=== PATIENT | female | born 1985 | race Caucasian/White ===

== ENCOUNTER 2017-02-16 07:03 | Emergency (ER) ==
[2017-02-16 07:11] VITALS: BP 147/87
[2017-02-16] MEDS ORDERED: ASPIRIN PO STA (07:29)
[2017-02-16] MEDS ORDERED: G.I. COCKTAIL ONE (07:31)
[2017-02-16 07:44] LABS: MANUAL DIFF NEEDED? NO
--- NOTE | 2017-02-16 07:51 | PROVIDER DOCUMENTATION ---
HPI-Abdominal Pain/GI Problem - General Chief Complaint: Epigastric Pain Stated Complaint: CHEST PAIN Time Seen by Provider: 02/16/17 07:18 Source: patient Allergies/Adverse Reactions: Patient Allergies Allergy/AdvReac Type Severity Reaction Status Date / Time Penicillins Allergy HIVES Verified 02/16/17 07:11 Home Medications: Home Medication List Medication Instructions Recorded Confirmed Last Taken Type Lisinopril 25 mg PO DAILY 02/16/17 02/16/17 Unknown History Tramadol [Ultram] 50 mg PO Q8HR PRN #10 tablet 02/16/17 Unknown Rx - History of Present Illness-ABD Nature of Presenting Problems: Reports L under breast pain and RUQ pain with radiating to her R shoulder blade. The L under breast pain started last night. Denies cardiac history, no h/ o DVT/PE. Reports her RUQ pain has been going on since one year ago when she was diagnosed gallstone. Has been working with [facility] to arrange her surgery due to no insurance. Pt looks comfortable when seen at ER. Abdominal Pain Onset Location: reports: RUQ, other (L CP) Pain Radiation: reports: shoulder (R) Quality of Pain: reports: aching Severity in ED: reports: moderate Onset/Duration: reports: 24 hours ago Timing: reports: still present Activities at Onset: reports: none Modifying Factors: improves with: rest, vomiting. worse with: movement Associated Symptoms: reports: vomiting, weakness. denies: diarrhea, EENT symptoms, rash, shortness of breath Last BM: unsure Dark Stools Present?: reports: none noticed Rectal Pain: reports: none # of Vomiting Episodes: 1 Emesis Description: reports: clear Bruising or Bleeding Gums?: No Similar Symptoms Previously?: Yes Recently seen or treated by another doctor?: Yes Review of Systems - Adult - REVIEW OF SYSTEMS - ADULT Constitutional: reports: see HPI. denies: fever, fatique Eyes: reports: no symptoms reported Ears, Nose, Mouth & Throat: reports: no symptoms reported Cardiovascular: reports: no symptoms reported Respiratory: reports: no symptoms reported Gastrointestinal: reports: see HPI, abdominal pain, frequent heartburn, nausea, vomiting. denies: difficulty swallowing, poor appetite Genitourinary: reports: no symptoms reported Musculoskeletal: reports: no symptoms reported Integumentary: reports: no symptoms reported Neurological: reports: no symptoms reported Endocrine: reports: no symptoms reported Hematologic/Lymphatic: reports: no symptoms reported All Other Systems: Reviewed and Negative Past History - Adult - PAST MEDICAL HISTORY-ADULT Review of Records: reports: Old Records Reviewed, Nursing Assessment Review, Medications Reviewed, Social history reviewed & non-contributory. Major Childhood Illnesses: reports: denies history Cardiovascular: reports: denies history Respiratory: reports: denies history Gastrointestinal: reports: denies history Obstetrical/Gynecological: reports: denies history Genitourinary: reports: denies history Musculoskeletal: reports: denies history Neurological: reports: denies history Endocrine/Immune: reports: denies history Other Conditions: reports: denies history - PRIOR SURGERIES/PROCEDURES Surgical/Procedure History: reports: - IMMUNIZATION STATUS Childhood Immunizations: See Nurse Assessment Flu Vaccine: See Nurse Assessment - FAMILY HISTORY Family History: reviewed, not pertinent Physical Exam-General - PHYSICAL EXAM-ADULT Initial Vital Signs Reviewed: Yes - CONSTITUTIONAL General Appearance: appears well, alert, no apparent distress - EYES Eyes: PERRL/EOMI, pink conjunctivae - HEAD, EARS, NOSE, MOUTH & THROAT HENMT: normocephalic/atraumatic, moist mucous membranes, normal ENT inspection - NECK Neck: non-tender, full range of motion, supple - RESPIRATORY Respiratory: chest non-tender, lungs clear, normal breath sounds, no pleuratic chest pain, no respiratory distress, no accessory muscle use - CARDIOVASCULAR Cardiovascular: normal peripheral pulses, regular rate, rhythm, no edema - GASTROINTESTINAL (ABDOMEN) Abdominal Exam: normal bowel sounds, soft, no organomegaly, no pulsatile mass, tenderness (Mild RUQ tenderness, no guarding and no rebound.). negative: distended, guarding, rigid, rebound - MUSCULOSKELETAL Back Exam: normal inspection, no CVA tenderness Extremity: normal range of motion, non-tender, normal gait, normal inspection - SKIN Integumentary: normal color, normal turgor, warm/dry - PSYCHIATRIC Psych/Mental Status: normal mood/affect, normal thought content, normal thought process, oriented x 3 Progress - PLAN OF CARE/RESULTS Progress/Plan/Lab Results: Laboratory Results - last 24 hr 02/16/17 02/16/17 02/16/17 07:39 07:39 07:39 WBC RBC Hgb Hct MCV MCH MCHC RDW Std Deviation Plt Count MPV Immature Gran % (Auto) Neut % (Auto) Lymph % (Auto) Giles % (Auto) Eos % (Auto) Baso % (Auto) Immature Gran # (Auto) Neut # (Auto) Lymph # (Auto) Giles # (Auto) Eos # (Auto) Baso # (Auto) PT INR APTT (Factor Assay) D-Dimer Sodium 135 L Potassium 4.2 Chloride 103 Carbon Dioxide 23 L Anion Gap 9 BUN 10 Creatinine 0.5 Estimated GFR/1.73 m2 > 60 BUN/Creatinine Ratio 20 Glucose 112 H Calculated Osmolality 270 Calcium 9.0 Magnesium 2.0 Total Bilirubin 0.30 AST 26 ALT 24 Alkaline Phosphatase 52 Creatine Kinase 309 H Creatine Kinase Index 1.7 CK-MB (CK-2) 5.33 H Troponin T < 0.010 [id number]-[id number] Pept 23 Total Protein 7.2 Albumin 4.1 Globulin 3.0 Albumin/Globulin Ratio 1.0 Urine Source Urine Color Urine Clarity Urine pH Ur Specific [place] Urine Protein Urine Ketones Urine Blood Urine Nitrite Urine Bilirubin Urine Urobilinogen Urine Microscopic RBC Urine WBC Urine Microscopic WBC Ur Epithelial Cells Urine Bacteria Urine Glucose Urine Test 02/16/17 02/16/17 02/16/17 07:39 07:39 08:50 WBC 7.13 RBC 4.26 Hgb 13.3 Hct 39.2 MCV 92.0 MCH 31.2 H MCHC 33.9 RDW Std Deviation 12.6 Plt Count 306 MPV 9.5 Immature Gran % (Auto) 0.3 Neut % (Auto) 54.1 Lymph % (Auto) 33.2 Giles % (Auto) 8.0 Eos % (Auto) 3.8 Baso % (Auto) 0.6 Immature Gran # (Auto) 0.02 Neut # (Auto) 3.86 Lymph # (Auto) 2.37 Giles # (Auto) 0.57 Eos # (Auto) 0.27 Baso # (Auto) 0.04 PT 13.0 INR 0.95 APTT (Factor Assay) 30.2 D-Dimer 0.32 Sodium Potassium Chloride Carbon Dioxide Anion Gap BUN Creatinine Estimated GFR/1.73 m2 BUN/Creatinine Ratio Glucose Calculated Osmolality Calcium Magnesium Total Bilirubin AST ALT Alkaline Phosphatase Creatine Kinase Creatine Kinase Index CK-MB (CK-2) Troponin T Kwl-A-Dmujhoggvht Pept Total Protein Albumin Globulin Albumin/Globulin Ratio Urine Source Urine Color Urine Clarity Urine pH Ur Specific [place] Urine Protein Urine Ketones Urine Blood Urine Nitrite Urine Bilirubin Urine Urobilinogen Urine Microscopic RBC Urine WBC Urine Microscopic WBC Ur Epithelial Cells Urine Bacteria Urine Glucose Urine Test NEGATIVE 02/16/17 08:50 WBC RBC Hgb Hct MCV MCH MCHC RDW Std Deviation Plt Count MPV Immature Gran % (Auto) Neut % (Auto) Lymph % (Auto) Giles % (Auto) Eos % (Auto) Baso % (Auto) Immature Gran # (Auto) Neut # (Auto) Lymph # (Auto) Giles # (Auto) Eos # (Auto) Baso # (Auto) PT INR APTT (Factor Assay) D-Dimer Sodium Potassium Chloride Carbon Dioxide Anion Gap BUN Creatinine Estimated GFR/1.73 m2 BUN/Creatinine Ratio Glucose Calculated Osmolality Calcium Magnesium Total Bilirubin AST ALT Alkaline Phosphatase Creatine Kinase Creatine Kinase Index CK-MB (CK-2) Troponin T Cmw-K-Iguzxresybm Pept Total Protein Albumin Globulin Albumin/Globulin Ratio Urine Source CLEAN CATCH Urine Color YELLOW Urine Clarity CLEAR Urine pH 7.0 Ur Specific [place] 1.010 Urine Protein NEGATIVE Urine Ketones NEGATIVE Urine Blood NEGATIVE Urine Nitrite NEGATIVE Urine Bilirubin NEGATIVE Urine Urobilinogen NORMAL Urine Microscopic RBC Not Reportable Urine WBC NEGATIVE Urine Microscopic WBC <10 Ur Epithelial Cells >10 A Urine Bacteria 1+ Urine Glucose NEGATIVE Urine Test Vital Signs Temp Pulse Resp BP Pulse Ox 02/16/17 07:11 98 F 87 18 147/87 98 Penicillins Allergy (Verified 02/16/17 07:11) HIVES Lisinopril 25 mg PO DAILY 02/16/17 Laboratory 02/16/17 02/16/17 02/16/17 08:50 08:50 07:39 WBC RBC Hgb Hct MCV MCH MCHC RDW Std Deviation Plt Count MPV Immature Gran % (Auto) Neut % (Auto) Lymph % (Auto) Giles % (Auto) Eos % (Auto) Baso % (Auto) Immature Gran # (Auto) Neut # (Auto) Lymph # (Auto) Giles # (Auto) Eos # (Auto) Baso # (Auto) PT 13.0 INR 0.95 APTT (Factor Assay) 30.2 D-Dimer 0.32 Sodium Potassium Chloride Carbon Dioxide Anion Gap BUN Creatinine Estimated GFR/1.73 m2 BUN/Creatinine Ratio Glucose Calculated Osmolality Calcium Magnesium Total Bilirubin AST ALT Alkaline Phosphatase Creatine Kinase Creatine Kinase Index CK-MB (CK-2) Troponin T Lru-R-Peqxrckeimt Pept Total Protein Albumin Globulin Albumin/Globulin Ratio Urine Source CLEAN CATCH Urine Color YELLOW Urine Clarity CLEAR Urine pH 7.0 Ur Specific [place] 1.010 Urine Protein NEGATIVE Urine Ketones NEGATIVE Urine Blood NEGATIVE Urine Nitrite NEGATIVE Urine Bilirubin NEGATIVE Urine Urobilinogen NORMAL Urine Microscopic RBC Not Reportable Urine WBC NEGATIVE Urine Microscopic WBC <10 Ur Epithelial Cells >10 A Urine Bacteria 1+ Urine Glucose NEGATIVE Urine Test NEGATIVE 02/16/17 02/16/17 02/16/17 07:39 07:39 07:39 WBC 7.13 RBC 4.26 Hgb 13.3 Hct 39.2 MCV 92.0 MCH 31.2 H MCHC 33.9 RDW Std Deviation 12.6 Plt Count 306 MPV 9.5 Immature Gran % (Auto) 0.3 Neut % (Auto) 54.1 Lymph % (Auto) 33.2 Giles % (Auto) 8.0 Eos % (Auto) 3.8 Baso % (Auto) 0.6 Immature Gran # (Auto) 0.02 Neut # (Auto) 3.86 Lymph # (Auto) 2.37 Giles # (Auto) 0.57 Eos # (Auto) 0.27 Baso # (Auto) 0.04 PT INR APTT (Factor Assay) D-Dimer Sodium Potassium Chloride Carbon Dioxide Anion Gap BUN Creatinine Estimated GFR/1.73 m2 BUN/Creatinine Ratio Glucose Calculated Osmolality Calcium Magnesium Total Bilirubin AST ALT Alkaline Phosphatase Creatine Kinase Creatine Kinase Index CK-MB (CK-2) Troponin T < 0.010 Pmi-I-Hjlplpotkup Pept 23 Total Protein Albumin Globulin Albumin/Globulin Ratio Urine Source Urine Color Urine Clarity Urine pH Ur Specific [place] Urine Protein Urine Ketones Urine Blood Urine Nitrite Urine Bilirubin Urine Urobilinogen Urine Microscopic RBC Urine WBC Urine Microscopic WBC Ur Epithelial Cells Urine Bacteria Urine Glucose Urine Test 02/16/17 07:39 WBC RBC Hgb Hct MCV MCH MCHC RDW Std Deviation Plt Count MPV Immature Gran % (Auto) Neut % (Auto) Lymph % (Auto) Giles % (Auto) Eos % (Auto) Baso % (Auto) Immature Gran # (Auto) Neut # (Auto) Lymph # (Auto) Giles # (Auto) Eos # (Auto) Baso # (Auto) PT INR APTT (Factor Assay) D-Dimer Sodium 135 L Potassium 4.2 Chloride 103 Carbon Dioxide 23 L Anion Gap 9 BUN 10 Creatinine 0.5 Estimated GFR/1.73 m2 > 60 BUN/Creatinine Ratio 20 Glucose 112 H Calculated Osmolality 270 Calcium 9.0 Magnesium 2.0 Total Bilirubin 0.30 AST 26 ALT 24 Alkaline Phosphatase 52 Creatine Kinase 309 H Creatine Kinase Index 1.7 CK-MB (CK-2) 5.33 H Troponin T Rsa-G-Datcfafucjn Pept Total Protein 7.2 Albumin 4.1 Globulin 3.0 Albumin/Globulin Ratio 1.0 Urine Source Urine Color Urine Clarity Urine pH Ur Specific [place] Urine Protein Urine Ketones Urine Blood Urine Nitrite Urine Bilirubin Urine Urobilinogen Urine Microscopic RBC Urine WBC Urine Microscopic WBC Ur Epithelial Cells Urine Bacteria Urine Glucose Urine Test Orders Category Date Time Status Cardiac Monitoring DIRECTED Care 02/16/17 07:29 Active CHEST-2 VIEWS [RAD] Stat Exams 02/16/17 07:29 Completed US GB < RUQ (LIMITED) [US] Stat Exams 02/16/17 07:29 Draft CBC WITH ELECTRONIC DIFF [HEME] Stat Lab 02/16/17 07:39 Completed CK PROFILE [SP CHEM] Stat Lab 02/16/17 07:39 Completed COMPREHENSIVE METABOLIC PANEL [CHEM] Stat Lab 02/16/17 07:39 Completed D-DIMER PL [COAG] Stat Lab 02/16/17 07:39 Completed MAGNESIUM [CHEM] Stat Lab 02/16/17 07:39 Completed TEST-URINE [PREG] Stat Lab 02/16/17 08:50 Completed PRO B-NATRIURETIC PEPTIDE Stat Lab 02/16/17 07:39 Completed PROTIME WITH INR PL [COAG] Stat Lab 02/16/17 07:[address] [COAG] Stat Lab 02/16/17 07:39 Completed TROPONIN T Stat Lab 02/16/17 07:[address] W/POSS RFLX CULT [URINALYSIS] Stat Lab 02/16/17 08:50 Completed Aspirin Med 02/16/17 07:29 Discontinued 325 mg PO STAT STA L[place] Alk/Al&mg Hydrox [G.i. Cocktail] Med 02/16/17 07:31 Discontinued 30 ml .ROUTE .STK-MED ONE Lido/Padilla Alk/Al&mg Hydrox [G.i. Cocktail] Med 02/16/17 08:46 Discontinued 30 ml PO NOW ONE EKG [EKG] Stat Ther 02/16/17 07:29 Draft - ULTRASOUND (By Radiology) 1 US Study: Gallbladder Impression: Abnormal (Fatty liver and gall stones. No gallbladder wall thickening.) Departure - Departure Time of Disposition Order: 09:38 DIAGNOSIS: Atypical chest pain Cholelithiases Qualifiers: Cholelithiasis location: gallbladder Cholecystitis presence: without cholecystitis Biliary obstruction: without biliary obstruction Qualified Code(s) : K80.20 - Calculus of gallbladder without cholecystitis without obstruction Disposition: HOME 01 Certified Medical Emergency: Emergent Condition: Stable Additional Instructions: Follow up with regular MD in 2-3 days. Return to ER as needed. Prescriptions: Tramadol [Ultram] 50 mg PO Q8HR PRN #10 tablet PRN Reason: Pain
[2017-02-16 07:54] LABS: BASO% 0.6 % (0.0-0.8); EOS# 0.27 X1000 (0.0-0.7); EOS% 3.8 % (0.0-10.0); HEMATOCRIT 39.2 % (37.0-47.0); HEMOGLOBIN 13.3 g/dL (12.0-16.0); IMM GRAN# 0.02 X1000 (0.0-0.04); IMM GRAN% 0.3 % (0.0-0.5); LYMPH# 2.37 X1000 (1.2-3.4); LYMPH% 33.2 % (20.5-51.1); MCH 31.2 PG (27-31); MCHC 33.9 g/dL (33-37); MONO# 0.57 X1000 (0.11-0.59); MPV 9.5 FL (7.4-10.4); NEUT% 54.1 % (42.2-75.2); PLT 306 X1000 (130-400); RBC 4.26 XMIL (4.2-5.4)
[2017-02-16 08:10] LABS: AGAP 9; ALBUMIN 4.1 g/dL (3.5-5.0); ALKALINE PHOSPHATASE 52 U/L (32-104); BUN 10 mg/dL (8-22); CHLORIDE 103 mmol/L (98-107); COSMO 270; GOT 26 U/L (10-30); GPT 24 U/L (10-36); POTASSIUM 4.2 mmol/L (3.5-5.1); SODIUM 135 mmol/L (136-145); TCO2 23 mmol/L (25-35); TOTAL PROTEIN 7.2 g/dL (6.3-8.3)
--- NOTE | 2017-02-16 08:25 | Diag Imaging Result Document ---
PROCEDURE NAME: CHEST-2 VIEWS - 02/16/2017 FRONTAL AND LATERAL CHEST, TWO VIEWS: FINDINGS: The lungs are well expanded. The heart is not enlarged. The vessels are not distended. No consolidation. No pleural effusions. No free air beneath the diaphragm. IMPRESSION: No acute abnormality.
[2017-02-16 08:28] LABS: CK PROFILE 309 U/L (24-173)
[2017-02-16 08:36] LABS: INR 0.95 (0.86-1.15)
[2017-02-16 08:37] LABS: PTT PL 30.2 Seconds (22.6-43.9)
[2017-02-16] MEDS ORDERED: G.I. COCKTAIL PO ONE (08:46)
--- NOTE | 2017-02-16 09:01 | EKG Report ---
Test Performed on : 02/16/2017 07:34:43 AM Test Reason : CHEST PAIN Blood Pressure : / mmHG Vent. Rate : 080 BPM Atrial Rate : 080 BPM P-R Int : 186 ms QRS Dur : 088 ms QT Int : 408 ms P-R-T Axes : 019 015 040 degrees QTc Int : 470 ms Normal sinus rhythm. Normal ECG No previous ECGs available Unconfirmed Result
[2017-02-16 09:07] LABS: URINE CULTURE PL NEEDED? NO; URINE SOURCE CLEAN CATCH
[2017-02-16 09:07] LABS: CK INDEX 1.7 (0.0-2.5); CK-MB 5.33 ng/mL (0.0-5.0)
--- NOTE | 2017-02-16 09:07 | Diag Imaging Result Document ---
PROCEDURE NAME: US GB < RUQ (LIMITED) - 02/16/2017 RIGHT UPPER QUADRANT ULTRASOUND: FINDINGS: No aneurysmal dilatation to the abdominal aorta. Normal inferior vena cava. Normal pancreatic head and body. A portion of the tail is obscured. There is fatty infiltration of the liver. No ascites in the right upper quadrant. There are multiple stones filling the gallbladder. The wall is not thickened. The common bile duct measures 4 mm. Normal right kidney. No hydronephrosis. IMPRESSION: 1. Cholelithiasis. 2. Fatty infiltration of the liver. A preliminary report was given at 8:53 a.m..
[2017-02-16 09:12] LABS: BILIRUBIN URINE NEGATIVE (NEGATIVE); BLOOD URINE NEGATIVE (NEGATIVE); CLARITY CLEAR (CLEAR); COLOR YELLOW; GLUCOSE URINE NEGATIVE (NEGATIVE); LEUKOCYTES URINE NEGATIVE (NEGATIVE); NITRITE URINE NEGATIVE (NEGATIVE); PROTEIN URINE NEGATIVE (NEGATIVE); UROBILINOGEN URINE NORMAL
[2017-02-16 09:21] LABS: URINE EPITHELIAL CELLS >10 /HPF (<10); URINE WBC <10 /HPF (<10)
--- NOTE | 2017-02-16 09:36 | ED EKG INTERP ---
EKG Interpretation - EKG Time of EKG reading by physician:: 07:34 EKG Read and Signed by:: Mohit Reese EKG Interpretation (*Must complete 3 of following elements*): Normal Rate: 80 Rhythm: NSR [place]: normal QRS: normal [place] Interval: normal ST Wave: normal Attestation - Scribe Verification/Attestation Scribe:: Mino Munguia Acting as Scribe for:: Mohit Reese Scribe documention review:: This chart was documented by a scribe and accurately reflects the service the provider performed and the decisions made by the provider. Physician Attestation - Physician Attestation I, the provider, attest to the following statement:: Mohit Reese Physician documentation Attestation:: This documentation recorded by the scribe accurately reflects the service I personally performed and the decisions made by me.
== END 2017-02-16 10:00 | disposition home or self-care (01) ==
LOC: P.ED 07:03
DX: K80.20 Calculus of gallbladder without cholecystitis without obstruction (principal); R07.89 Other chest pain; R10.11 Right upper quadrant pain; N64.4 Mastodynia; M25.511 Pain in right shoulder; R10.13 Epigastric pain; R11.2 Nausea with vomiting, unspecified; R53.1 Weakness; R12 Heartburn; R10.811 Right upper quadrant abdominal tenderness
CPT/HCPCS: 36415; 71020; 76705; 80053; 81001; 81025; 82550; 82553; 83735; 83880; 84484; 85025; 85379; 85610; 85730; 93005